=== PATIENT | male | born 2000 | race Two or more races ===

== ENCOUNTER 2025-07-26 18:01 | Emergency (ER) | payer MEDICAID ==
[~2025-07-26] VITALS: Ht 154.9 cm; Wt 49.9 kg
[2025-07-26 18:10] VITALS: BP 134/89; TEMP 98.3; O2SAT 99
[2025-07-26] MEDS ORDERED: TDAP [DIPH/PERTUSSIS/TET] 0.5 ML VIAL IM ONE ×2 (19:41→20:00)
== END 2025-07-26 19:47 | disposition home or self-care (01) ==
LOC: ER 18:03
DX: S61.211A Laceration without foreign body of left index finger without damage to nail, initial encounter (principal); S61.213A Laceration without foreign body of left middle finger without damage to nail, initial encounter; W26.0XXA Contact with knife, initial encounter; Y93.89 Activity, other specified; Y92.89 Other specified places as the place of occurrence of the external cause; Y99.8 Other external cause status
CPT/HCPCS: 90715

== ENCOUNTER 2025-08-03 17:26 | Emergency (ER) | payer MEDICAID ==
[~2025-08-03] VITALS: Ht 160 cm; Wt 56.7 kg
[2025-08-03 17:38] VITALS: BP 125/81; TEMP 98
[2025-08-03 18:35] VITALS: O2SAT 97
== END 2025-08-03 18:36 | disposition home or self-care (01) ==
LOC: ER 17:53
DX: S61.218D Laceration without foreign body of other finger without damage to nail, subsequent encounter (principal); Z48.02 Encounter for removal of sutures; X58.XXXD Exposure to other specified factors, subsequent encounter